=== PATIENT | male | born 1975 | race Caucasian/White ===

== ENCOUNTER 2017-12-29 18:08 | Emergency (ER) | payer MEDICAID ==
[~2017-12-29] VITALS: Ht 165.1 cm; Wt 63.5 kg
[2017-12-29 18:20] VITALS: BP_SYST 122
[2017-12-29] MEDS ORDERED: CLINDAMYCIN HCL 150 MG CAPSULE PO ONE (21:15)
[2017-12-29] MEDS ORDERED: SULFAMETHOXAZOLE/TRIMETHOPR DS 1 TABLET PO ONE (21:15)
[2017-12-29 21:37] VITALS: BP_SYST 124
== END 2017-12-29 21:37 | disposition home or self-care (01) ==
LOC: SED 18:08
DX: T81.4XXA Infection following a procedure, initial encounter (principal); K40.90 Unilateral inguinal hernia, without obstruction or gangrene, not specified as recurrent; B99.9 Unspecified infectious disease; Y83.9 Surgical procedure, unspecified as the cause of abnormal reaction of the patient, or of later complication, without mention of misadventure at the time of the procedure; Y92.89 Other specified places as the place of occurrence of the external cause
CPT/HCPCS: 99283

== ENCOUNTER 2021-04-16 15:18 | Emergency (ER) | payer MEDICAID, OTHER ==
[~2021-04-16] VITALS: Ht 165.1 cm; Wt 59.0 kg
[2021-04-16 15:30] VITALS: BP_SYST 123
== END 2021-04-16 19:30 | disposition left against medical advice (07) ==
LOC: SED 15:18
DX: M25.461 Effusion, right knee (principal); M25.462 Effusion, left knee; Z53.21 Procedure and treatment not carried out due to patient leaving prior to being seen by health care provider

== ENCOUNTER 2021-04-23 07:56 | Emergency (ER) | payer OTHER ==
[~2021-04-23] VITALS: Ht 165.1 cm; Wt 61.2 kg
--- NOTE | 2021-04-23 08:30 | NUR ---
Patient to ER bed 7 to gown for evaluation. Side rails up. Report given to USHA Ramos.
[2021-04-23 08:32] VITALS: BP_SYST 139
--- NOTE | 2021-04-23 08:50 | NUR ---
First contact made with patient. Patient awake, alert and oriented x 3. Chief complaint-L knee swelling and pain x 1 month. Patient using crutches to ambulate stating he is unable to weight bear on left leg. PMH IV substance use. Awaiting further evaluation.
--- NOTE | 2021-04-23 08:55 | NUR ---
XRay being done at bedside
[2021-04-23 09:14] LABS: BASOPHILS % (AUTO) 0.3 % (0.0-2.0); EOSINOPHILS % (AUTO) 0.3 % (0.0-4.0); HEMATOCRIT 27.3 % (36-54); HEMOGLOBIN 8.3 g/dL (14.0-18.0); LYMPHOCYTES # (AUTO) 1.2 K/uL (1.0-5.5); LYMPHOCYTES % (AUTO) 12.3 % (20.5-51.5); MEAN CORPUSCULAR HEMOGLOBIN 18 pg (27-31); MEAN CORPUSCULAR HGB CONC 31 % (32-36); MEAN CORPUSCULAR VOLUME 59 fL (79.0-98.0); MONOCYTES # (AUTO) 0.7 K/uL (0.0-1.0); MONOCYTES % (AUTO) 7.6 % (1.7-9.3); NEUTROPHILS # (AUTO) 7.5 K/uL (1.8-7.7); NEUTROPHILS % (AUTO) 79.5 % (40.0-70.0); PLATELET COUNT (AUTO) 478 K/uL (130-430); RED BLOOD CELL COUNT(AUTO) 4.66 MIL/uL (4.2-6.2); RED CELL DISTRIBUTION WIDTH 18.7 % (9.0-15.0); WHITE BLOOD COUNT (AUTO) 9.5 K/uL (4.8-10.8)
[2021-04-23 09:32] LABS: CALCIUM 8.1 mg/dL (8.4-11.0); CREATININE 0.72 mg/dL (0.55-1.30); POTASSIUM 3.8 mmol/L (3.5-5.1)
[2021-04-23 09:37] LABS: ALBUMIN 2.6 g/dL (3.4-4.8); C-REACTIVE PROTEIN QUANT 11.9 mg/dL (0-0.5); TOTAL BILIRUBIN 0.1 mg/dL (0.0-1.0); URIC ACID 2.9 mg/dL (2.4-7.0)
[2021-04-23 09:54] LABS: PROTHROMBIN TIME 10.4 SECS (9.5-12.5)
[2021-04-23 09:55] LABS: ERYTHROCYTE SEDIMENTATION RATE 68 MM/HR (0-15)
--- NOTE | 2021-04-23 10:08 | NUR ---
Patient asked RN to use bathroom. RN showed location and patient stated "It will be hard for me to sit." Patient continued to stand with crutches in room.
--- NOTE | 2021-04-23 10:10 | NUR ---
Dr Del Real to bedside to re-evaluate and update patient.
--- NOTE | 2021-04-23 10:12 | NUR ---
Per Dr Del Real, patient asked to "go to aunt's house to use her restroom" and Dr Del Real allowed. Patient to be gone (off hospital grounds) for "a half hour." machine binding folder aware.
[2021-04-23 10:53] VITALS: BP_SYST 139
--- NOTE | 2021-04-23 10:54 | NUR ---
Dr. Gt Nice aware.
[2021-04-23] MEDS ORDERED: NAPR-690 PO (15:22)
== END 2021-04-23 10:54 | disposition left against medical advice (07) ==
LOC: SED 07:56
DX: M25.562 Pain in left knee (principal); M25.462 Effusion, left knee
CPT/HCPCS: 36415; 73560-TC; 76942-TC; 80053; 84550; 85025; 85610-TC; 85651-TC; 85730-TC; 86140; 99285

== ENCOUNTER 2021-04-23 12:12 | Emergency (ER) | payer OTHER ==
[~2021-04-23] VITALS: Ht 170.2 cm; Wt 65.8 kg
[2021-04-23 12:21] VITALS: BP_SYST 145
--- NOTE | 2021-04-23 12:30 | NUR ---
Pt triaged and placed in waiting room
--- NOTE | 2021-04-23 12:50 | NUR ---
Patient to ER bed 2 to gown for evaluation. Side rails up. Report given to USHA Desouza.
[2021-04-23] MEDS ORDERED: LIDOCAINE 1%, 20 ML MDV 20 ML ONE (13:00)
--- NOTE | 2021-04-23 13:16 | NUR ---
DR AVILEZ AT BEDSIDE, DRAINING FLUID. PT TOLERATING WELL.
--- NOTE | 2021-04-23 13:36 | NUR ---
46YR old male drop off by family member from home. Aox4, in nad. Resp even and unlabored, on ra @99%. complains of swollen Left knee. rates pain 9/10. states there is fluid in the knee. he can walk but pain when sitting down. pain started 3 weeks ago. no redness noted. took tylenol 3 days ago. admits to taking heroin and opiods everyday. last use this am. denies chest pain. 3/10 pain also on the right knee and is intermittent.
[2021-04-23 14:21] LABS: SOURCE/TYPE ,BODY FLUID SYNOVIAL
[2021-04-23 14:23] LABS: BF APPEARANCE UNSPUN HAZY (CLEAR); BODY FLUID COLOR YELLOW (LT YELLOW)
[2021-04-23 14:24] LABS: BODY FLUID TOTAL VOLUME 30 mL
[2021-04-23 14:25] LABS: BODY FLUID SOURCE/ TYPE SYNOVIAL
[2021-04-23 15:20] VITALS: BP_SYST 145
--- NOTE | 2021-04-23 15:20 | NUR ---
Patient given written and verbal discharge instructions and verbalizes understanding. ER MD discussed with patient the results and treatment provided. Patient in stable condition. ID arm band removed. IV catheter removed intact and dressing applied, no active bleeding. Rx of naproxen given. Patient educated on pain management and to follow up with PMD. Pain Scale 0/10 Opportunity for questions provided and answered. Medication side effect fact sheet provided.
[2021-04-23] MEDS ORDERED: NAPR-690 PO (15:22)
--- NOTE | 2021-04-23 15:26 | NUR ---
PT DISCHARGED BY DR DAMON.
[2021-04-23 22:58] LABS: BODY FLUID GLUCOSE 114 mg/dL; BODY FLUID TOTAL PROTEIN 6.4 g/dL
[2021-04-23 23:42] LABS: RBC, BODY FLUID 956 /uL; WBC, BODY FLUID 46556 /uL
[2021-04-23 23:48] LABS: LYMPHOCYTES, BODY FLUID 2 %
[2021-04-23 23:49] LABS: EOSINOPHIL, BODY FLUID 0 %; MONOCYTES,BODY FLUID 4 %; NEUTROPHIL, BODY FLUID 94 %
[2021-04-23 23:53] LABS: BODY FLUID CRYSTALS NO CRYSTALS SEEN (None Seen)
== END 2021-04-23 15:20 | disposition home or self-care (01) ==
LOC: SED 12:12
DX: M25.462 Effusion, left knee (principal); M17.12 Unilateral primary osteoarthritis, left knee
CPT/HCPCS: 20610; 76882; 82947; 84157; 87070; 87186; 89051 ×2; 89060; 99284; J2001